=== PATIENT | female | born 2000 | race Caucasian/White ===

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

== ENCOUNTER 2018-01-12 13:50 | Inpatient (IN) | payer MEDICAID, OTHER ==
[~2018-01-12] VITALS: Ht 154.9 cm; Wt 64.9 kg
[~2018-01-12 13:50] MED LIST: ARIP10TA8 PO; DIVA500T35 PO; ESCI10TA PO; LAMO25 PO
[2018-01-12 15:33] LABS: BASOPHILS % (AUTO) 0.6 % (0.0-2.0); EOSINOPHILS % (AUTO) 1.1 % (1.0-6.0); HEMATOCRIT 43.2 % (36-46); HEMOGLOBIN 14.2 g/dL (12.0-16.0); LYMPHOCYTES # (AUTO) 2.7 K/uL (1.0-4.8); LYMPHOCYTES % (AUTO) 23.7 % (22.0-44.0); MEAN CORPUSCULAR HEMOGLOBIN 27.1 pg (26.0-34.0); MEAN CORPUSCULAR HGB CONC 32.7 G/dL (31.0-37.0); MEAN CORPUSCULAR VOLUME 83 fL (80-100); MONOCYTES # (AUTO) 0.7 K/uL (0.1-1.0); MONOCYTES % (AUTO) 6.2 % (2.0-9.0); NEUTROPHILS # (AUTO) 7.7 K/uL (1.8-7.7); NEUTROPHILS % (AUTO) 68.4 % (40.0-70.0); PLATELET COUNT (AUTO) 386 K/uL (150-450); RED BLOOD CELL COUNT(AUTO) 5.22 MIL/uL (4.00-5.20)
[2018-01-12 15:42] LABS: ANION GAP 10 mmol/L (8-16); CALCIUM, TOTAL 9.4 mg/dL (8.8-10.5); CARBON DIOXIDE 28 mmol/L (22-29); CHLORIDE 105 mmol/L (98-107); CREATININE 0.83 mg/dL (0.60-1.30); GLOMERULAR FILTR. RATE CALC > 60 mL/min (>60); GLUCOSE,RANDOM 85 mg/dL (70-110); POTASSIUM 4.7 mmol/L (3.5-5.1); SODIUM SERUM 143 mmol/L (136-145); UREA NITROGEN, BLOOD 6 mg/dL (7-18)
[2018-01-12 15:48] LABS: ALANINE AMINOTRANSFERASE 34 U/L (12-78); ALBUMIN 3.9 g/dL (3.4-5.0); ALKALINE PHOSPHATASE 75 U/L (46-116); ASPARTATE AMINOTRANSFERASE 14 U/L (15-37); BILIRUBIN,TOTAL 0.3 mg/dL (0.1-1.0); TOTAL PROTEIN, SERUM 7.5 g/dL (6.4-8.2)
[2018-01-12 17:08] LABS: AMPHET/METH SCREEN,URINE NEGATIVE (NEGATIVE); BARBITURATE SCREEN, URINE NEGATIVE (NEGATIVE); BENZODIAZEPINES SCREEN,URINE NEGATIVE (NEGATIVE); CANNABINOID SCREEN,URINE NEGATIVE (NEGATIVE); COCAINE SCREEN,URINE NEGATIVE (NEGATIVE); METHADONE SCREEN, URINE NEGATIVE (NEGATIVE); OPIATE SCREEN,URINE NEGATIVE (NEGATIVE); PHENCYCLIDINE SCREEN,URINE NEGATIVE (NEGATIVE)
[2018-01-12] MEDS ORDERED: HALOPERIDOL 5 MG TABLET PO PRN (18:15)
[2018-01-12] MEDS ORDERED: ZOLPIDEM TARTRATE 10 MG TABLET PO PRN (18:15)
[2018-01-12] MEDS ORDERED: LORazepam 2 MG TABLET PO PRN (18:15)
[2018-01-12 19:54] VITALS: BP 122/77
[2018-01-12] MEDS ORDERED: INFLUENZA VIRUS VACCINE QVS 2017-18 (3YR+)/PF 60 MCG/0.5 ML SYRINGE IM ONE (20:30)
[2018-01-13 06:31] VITALS: BP 109/68
[2018-01-13 08:41] VITALS: BP 123/74
[2018-01-13 16:18] VITALS: BP 126/63
[2018-01-13 18:44] VITALS: BP 116/78
[2018-01-13] MEDS ORDERED: ACETAMINOPHEN 325 MG TABLET PO PRN (19:15)
[2018-01-13] MEDS: MIRTAZAPINE 15 MG TABLET PO SCH (20:39)
[2018-01-14 07:09] VITALS: BP 105/60
[2018-01-14 08:25] VITALS: BP 100/67
[2018-01-14 08:45] LABS: FREE T4 (FREE THYROXINE) 1.09 ng/dL (0.76-1.46); HCG,QUANTITATIVE < 1 mIU/mL (0-6)
[2018-01-14] MEDS: ARIPiprazole 10 MG TABLET PO SCH (09:02)
[2018-01-14 16:18] VITALS: BP 117/72
[2018-01-14] MEDS: MIRTAZAPINE 15 MG TABLET PO SCH (20:09)
[2018-01-15 06:32] VITALS: BP 115/71
[2018-01-15 08:22] VITALS: BP 109/88
[2018-01-15] MEDS: ARIPiprazole 10 MG TABLET PO SCH (08:44)
[2018-01-15 16:27] VITALS: BP 120/82
[2018-01-15] MEDS: MIRTAZAPINE 15 MG TABLET PO SCH (20:08)
[2018-01-16 06:35] VITALS: BP 105/63
[2018-01-16] MEDS: ARIPiprazole 10 MG TABLET PO SCH (08:48)
[2018-01-16 09:04] VITALS: BP 105/70
[2018-01-16] MEDS ORDERED: ARIP10TA8 PO (12:19)
[2018-01-16] MEDS ORDERED: MIRT15 PO (12:19)
== END 2018-01-16 14:39 | disposition home or self-care (01) | DRG 751 ==
LOC: EMS 13:51 → B3A 18:12 → B2S 01-13 18:25
PROVIDERS: ADMIT Psychiatry & Neurology Psychiatry; ATTEND Psychiatry & Neurology Psychiatry
DX: F33.2 Major depressive disorder, recurrent severe without psychotic features (principal); R45.851 Suicidal ideations; F20.9 Schizophrenia, unspecified; R45.87 Impulsiveness; F60.3 Borderline personality disorder; D72.829 Elevated white blood cell count, unspecified; F41.9 Anxiety disorder, unspecified; Z88.8 Allergy status to other drugs, medicaments and biological substances; Z79.899 Other long term (current) drug therapy
CPT/HCPCS: 84439; 84443; 99285; G0480